=== PATIENT | male | born 1970 | race Caucasian/White ===

== ENCOUNTER → 2020-03-21 16:32 | Outpatient (CLI) | payer OTHER, SELFPAY ==
[2020-03-21 19:42] LABS: Coronavirus 19 IgG Antibody Positive (Negative); Coronavirus 19 IgM Antibody Negative (Negative)
== END ==
PROVIDERS: Visit Provider Internal Medicine Gastroenterology
DX: Z01.818 Encounter for other preprocedural examination (principal); Z12.11 Encounter for screening for malignant neoplasm of colon
CPT/HCPCS: 36415; 86328

== ENCOUNTER 2020-03-23 08:59 | Day surgery (SDC) | payer OTHER, SELFPAY ==
[2020-03-19 09:29] VITALS: BMI 33.9
[2020-03-23] VITALS (7 sets, daily range): BP systolic 79–141; BP diastolic 44–84; PULSE 95–110; RESP 18; TEMP 36–36.9; O2SAT 91–97
[2020-03-23 09:27] LABS: POC Glucose,Bedside 200 (70-110)
--- NOTE | 2020-03-23 10:32 | P.PN_ITS ---
[facility] Anesthesia Checklist - Patient Identification Patient Identification: Arm Band - Structural Data Admitted From: Home Planned Operative Procedure/s: colonoscopy Consent for Planned Operative Procedure(s) Verified: Yes Verified Documents: Surgical Consent, History and Physical - NPO Status Verified Time NPO: 00:00 - Additional verifications Anesthesia Reactions: No - Airway Assessment C-Spine Mobility Assessed: Yes (mp2) TMJ Mobility Assessed: Yes Dentition: Poor Dentition - Neurological Assessment Level of Consciousness: Awake, Alert - Anesthesia Plan Anesthesia Risk discussed: Yes Anesthesia Plan: Verified ASA Class: III Anesthesia Type: MAC [facility] History I have reviewed the patient's past medical history: Yes Medical History: Reports:: Anxiety, Atrial Fibrillation, Diabetes Mellitus Type 2, Hyperlipidemia, Hypertension Denies:: Cancer, Diabetes Mellitus Type 1, Internal Pacemaker, MRSA, Seizures *Have you ever received a pneumonia vaccine?: No *Have you received a flu vaccine this season?: Yes Anesthesia experience/problems:: nac Other Surgeries: Yes: Appendectomy, Other. No: Pacemaker Amputation: No Fractures: Yes (L arm, L foot, nose) - *Social History Last grade of school completed: High school graduate Smoking Status: Never smoker Alcohol Intake: current Alcohol Intake Frequency:: holidays/special occasions only Substance Use Type: denies use, other *Occupational Status:: employed Housing: house Household Members: spouse, family *Travel in the last 8 weeks: None Family Hx:: Diabetes, Cancer
--- NOTE | 2020-03-23 10:54 | P.PCN_ITS ---
[facility] Procedure Note Procedure Note:: Colonoscopy Procedure Report: Colonoscopy with cold snare polypectomy Endoscopist: Gurinder Zuluaga II, MD Referring physician: Fabián Bazan MD Date of Procedure: March 23, 2020 Equipment: Olympus 180 variable stiffness pediatric colonoscope Sedation: MAC sedation Indication: Mr. Segundo is a 49-year-old gentleman who is here for initial diagnostic colonoscopy secondary to rectal pressure and pain with some burning discomfort. He does not feel hemorrhoids and reports no rectal bleeding. The pain can shoot from the anal region with proctalgia. He has had some bowel irregularity with hard stools that later become loose. He does have obstipation with incomplete defecation and excessive wiping. He has noted some lower abdominal discomfort. He does attribute this to some of the new diabetic medications that he was taking. He reports no rectal bleeding or weight loss. He does state that his maternal grandmother had colon cancer in her early 60s. He believes that his maternal uncle also may have had colon cancer or prostate cancer in his early 50s. Procedure: Prior to the procedure, a history and physical exam was performed, and patient's medications and allergies were reviewed. The risks, benefits and alternatives of the sedation and procedure were discussed with the patient. All questions were answered and informed consent was obtained. The patient was brought to the procedure room. Patient identification and proposed procedure were verified by the physician and the nurse. The patient was placed in a left lateral decubitus position and the scope was passed under direct vision. Throughout the procedure, the patient's blood pressure, pulse, and oxygen saturations were monitored continuously. The colonoscopy was accomplished without difficulty. The patient tolerated the procedure well. Findings: On digital rectal examination there was normal rectal tone. There were no external hemorrhoids. The prostate was 2+, minimally firm but symmetric without nodules. The colonoscope was introduced through the anal canal to the rectum and advanced to the cecum. The ileocecal valve and appendiceal orifice were identified. The scope was advanced a short distance into the ileum which appeared grossly normal. The scope was then withdrawn into the colon. There was a single 3 mm polyp in the transverse colon removed via cold snare polypectomy. The remaining cecum, ascending, transverse, descending, sigmoid and rectum were grossly normal. There were no mucosal abnormalities identified. Upon retroflexion within the rectum there were grade 1 internal hemorrhoids.The preparation was excellent throughout with [place] Preparation Score of 9. The cecal time was 12 minutes. Impression: 1. Diminutive transverse colon polyp 2. Grade 1 internal hemorrhoids Plan: I will follow up the polyp pathology and recommend repeat colonoscopy again in 7-10 years based upon the polyp histology. I would encourage fiber supplementation/fiber bowel regimen on a long-term daily maintenance basis.
--- NOTE | 2020-03-23 11:04 | PC.NURSE ---
PT PLACED ON 2L O2 AND SATURATION INCREASED TO 93%.
== END 2020-03-23 11:36 | disposition home or self-care (01) ==
LOC: OUTP 09:05
PROVIDERS: PCP Family Medicine; Visit Provider Internal Medicine Gastroenterology
PROC: 0DJD8ZZ Inspection of Lower Intestinal Tract, Via Natural or Artificial Opening Endoscopic (ICD-10-PCS; CPT 45378; principal; 2020-03-23 10:00)
DX: K62.89 Other specified diseases of anus and rectum (principal); K59.00 Constipation, unspecified; K63.5 Polyp of colon; K64.0 First degree hemorrhoids; E11.9 Type 2 diabetes mellitus without complications; I10 Essential (primary) hypertension; E78.5 Hyperlipidemia, unspecified; I48.91 Unspecified atrial fibrillation; F41.9 Anxiety disorder, unspecified; Z90.49 Acquired absence of other specified parts of digestive tract
CPT/HCPCS: 45385; 82962

== ENCOUNTER 2020-08-15 23:18 | Observation (INO) | payer OTHER, SELFPAY ==
[2020-08-15 23:30] VITALS: BP 165/92; PULSE 76; RESP 18; TEMP 36.4; O2SAT 99; BMI 33.2
--- NOTE | 2020-08-15 23:47 | ECG_ITS ---
APPROVED REPORT Exam: Resting ECG HR:77 bpm ECG Measurements Heart Rate 77 AXES [place] 130 P 40 QRSd 92 QRS 5 QT 384 T 49 QTc 434 Conclusion Normal sinus rhythm Normal ECG Electronically signed by : Jesus Alberto Navarro, 08/16/2020 21:17:20
[2020-08-15 23:49] LABS: Microscopic, Urine URINE MICROSCOPIC (MICROSCOPIC)
[2020-08-15 23:51] LABS: Appearance,Urine CLEAR (Clear); Bilirubin,Urine Negative (Negative); Blood, Urine Negative (Negative); Color,Urine YELLOW (Yellow); Glucose,Urine (UA) 3+ (Negative); Ketones,Urine TRACE (Negative); Leukocyte Esterase,Urine Negative (Negative); Nitrate,Urine Negative (Negative); PH,Urine 6.5 (5.0-8.5); Protein,Urine Negative (Negative)
--- NOTE | 2020-08-15 23:52 | HMH.EDNVD ---
ED Disposition Clinical Impression: Abdominal pain Qualifiers: Abdominal location: upper abdomen, unspecified Qualified Code(s): R10.10 - Upper abdominal pain, unspecified Disposition: Admitted as Observation Condition on Discharge: Good Instructions: DI for Acute Abdominal Pain Referrals: Mauro Bazan MD [Primary Care Provider] - - Critical Care Critical Care Time: No Attestation: On , the high probability of a clinically significant, sudden or life threatening deterioration of the following system(s) required my full and direct attention, intervention and personal management. The time I documented below is in addition to time spent performing reported procedures but includes the following listed in this critical care notation. Medical Decision Making - Medical Records Medical records reviewed: Yes: I reviewed the patient's medical records. - Luigi Inquiry Pt receiving controlled substance: No Vital Signs: 08/15/20 23:30 Temperature 97.5 F L Temperature Source Oral Pulse Rate [Right] 76 Respiratory Rate 18 Blood Pressure [Right Arm] 165/92 H Blood Pressure Mean [Right Arm] 116 Blood Pressure Source [Right Arm] Automatic Cuff Blood Pressure Position [Right Arm] Supine 02 Sat by Pulse Oximetry 99 Oxygen Delivery Method Room Air - Lab Data Lab results reviewed: Yes: I reviewed the patient's lab results. Lab Results 08/15/20 23:30: Urine Color Yellow, Urine Appearance Clear, Urine pH 6.5, Ur Specific [place] 1.010, Urine Protein Negative, Urine Glucose (UA) 3+, Urine Ketones Trace, Urine Blood Negative, Urine Nitrate Negative, Urine Bilirubin Negative, Urine Urobilinogen 1.0, Ur Leukocyte Esterase Negative, Urine WBC Occasional 08/15/20 23:45: WBC 10.3, RBC 5.45, Hgb 14.1, Hct 44.2, MCV 81.0, MCH 25.8 L, MCHC 31.8, RDW 15.6, Plt Count 259, MPV 7.8, Neut % (Auto) 68.3, Lymph % (Auto) 23.9, [place] % (Auto) 6.3, Eos % (Auto) 1.0, Baso % (Auto) 0.4, Neut # (Auto) 7.0, Lymph # (Auto) 2.5, [place] # (Auto) 0.7, Eos # (Auto) 0.1, Baso # (Auto) 0.0 08/15/20 23:45: Sodium 136, Potassium 4.0, Chloride 98, Carbon Dioxide 25, Anion Gap 17.0 H, BUN 16, Creatinine 0.70, Estimated Creat Clear 201, Estimated GFR 120, Est GFR ( Amer) 145, Glucose 344 H, Calcium 10.1, Total Bilirubin 0.7, AST 30, ALT 38, Alkaline Phosphatase 108, Troponin I < 0.01, C-Reactive Protein 34.7 H, Total Protein 8.0, Albumin 4.7, Globulin 3.3 H, Albumin/Globulin Ratio 1.4, Amylase 54, Lipase 394 H 08/15/20 23:45: Lactate 3.0 H 08/15/20 23:45: ESR 21 H 08/15/20 23:45: Procalcitonin 0.082 08/16/20 00:00: Acetone Level None detected 08/16/20 02:17: Troponin I < 0.01 Result diagrams: 08/15/20 23:45 08/15/20 23:45 Orders (Tests/Meds): ED MEDICATIONS Generic Name Dose Route Start Last Admin Trade Name Freq PRN Reason Stop Dose Admin Sodium Chloride 1,000 mls @ 999 mls/hr 08/15/20 23:45 08/15/20 23:53 Sod Chlor 0.9% 1000ml Bag IV 08/16/20 00:45 999 mls/hr .Q1H1M BEN Administration Sodium Chloride 1,000 mls @ 999 mls/hr 08/16/20 02:45 08/16/20 02:37 Sod Chlor 0.9% 1000ml Bag IV 08/16/20 03:45 999 mls/hr .Q1H1M BEN Administration Sodium Chloride 8 ml 08/15/20 23:50 Sodium Chloride 0.9% 10ml Vial IV 09/14/20 23:49 NEEDED PRN dilute pepcid Discontinued Medications Generic Name Dose Route Start Last Admin Trade Name Freq PRN Reason Stop Dose Admin Famotidine 20 mg 08/15/20 23:50 08/15/20 23:53 Famotidine 20mg/2ml Vial IV 08/15/20 23:51 20 mg ONCE ONE Administration Iopamidol 75 ml 08/16/20 01:16 08/16/20 01:17 Iopamidol-370 (76%);100ml Bottle IV 08/16/20 01:17 75 ml ONCE ONE Administration Ketorolac Tromethamine 30 mg 08/15/20 23:50 08/15/20 23:53 Ketorolac 30mg/Ml Vial IV 08/15/20 23:51 30 mg ONCE ONE Administration Metoclopramide HCl 10 mg 08/15/20 23:50 08/15/20 23:53 Metoclopramide Hcl 10mg/2ml Vial IVP 08/15/20 23:51 10 mg ONCE ONE Ad
[2020-08-16] VITALS (8 sets, daily range): BP systolic 115–147; BP diastolic 69–96; PULSE 72–84; RESP 16–18; TEMP 36.4–36.7; O2SAT 93–97; BMI 32.8
[2020-08-16 00:01] LABS: Basophils % 0.4 % (0.1-2.0); Eosinophils # 0.1 K/mm3 (0.0-0.4); Hematocrit 44.2 % (42.0-52.0); Hemoglobin 14.1 g/dL (14.1-18.0); Lymphocytes # 2.5 K/mm3 (0.7-4.5); Lymphocytes % 23.9 % (10-50); Mean Corpuscular HGB Conc 31.8 g/dL (31.8-35.4); Mean Corpuscular Hemoglobin 25.8 pg (27.0-31.2); Mean Platelet Volume 7.8 fl (7.4-10.4); Monocytes # 0.7 K/mm3 (0.1-1.0); Monocytes % 6.3 % (1.7-9.3); Neutrophils % 68.3 % (37.0-80.0); Platelet Count 259 K/mm3 (142-424); Red Blood Count 5.45 M/mm3 (4.60-6.20); Red Cell Distribution Width 15.6 % (11.5-17.5); White Blood Count 10.3 K/mm3 (4.8-10.8)
--- NOTE | 2020-08-16 00:05 | CT_ITS ---
PROCEDURE INFORMATION: Exam: CT Abdomen And Pelvis With Contrast Exam date and time: 08/16/2020 12:05 AM Age: 50 years old Clinical indication: Abdominal pain; Epigastric; Patient HX: Appendix and vascetomy; Additional info: Upper abd pain no vomiting TECHNIQUE: Imaging protocol: Computed tomography of the abdomen and pelvis with contrast. Radiation optimization: All CT scans at this facility use at least one of these dose optimization techniques: automated exposure control; mA and/or kV adjustment per patient size (includes targeted exams where dose is matched to clinical indication); or iterative reconstruction. Contrast material: ISOVUE 370; Contrast volume: 75 ml; Contrast route: INTRAVENOUS (IV); COMPARISON: No relevant prior studies available. FINDINGS: Liver: The liver is diffusely decreased in density, compatible with hepatic steatosis. Gallbladder and bile ducts: Normal. No calcified stones. No ductal dilation. Pancreas: Normal. No ductal dilation. Spleen: The spleen is prominent, measuring at least 15.4 cm. Adrenal glands: Normal. No mass. Kidneys and ureters: Kidneys enhance symmetrically and there is no evidence for obstructive uropathy. Stomach and bowel: Unremarkable. No obstruction. No mucosal thickening. Appendix: The appendix is not definitively visualized, possibly small or absent, however, regional sequela of appendicitis is not identified. Intraperitoneal space: Unremarkable. No free air. No significant fluid collection. Vasculature: Unremarkable. No abdominal aortic aneurysm. Lymph nodes: Increased number of retroperitoneal lymph nodes, possibly reactive in nature, but not enlarged by CT criteria, most prominent a 13 mm portacaval lymph node. Urinary bladder: Unremarkable as visualized. Reproductive: Unremarkable as visualized. Bones/joints: There are age-related degenerative changes of the visualized spine. No acute fracture. Lumbar mild levocurvature noted. Soft tissues: There is a fat containing right inguinal hernia. IMPRESSION: 1. No overt acute inflammatory process or suspicious mass noted. No evidence for bowel obstruction. 2. Hepatic steatosis. 3. Splenomegaly. 4. Increased number of retroperitoneal lymph nodes, possibly reactive in nature, but not enlarged by CT criteria, most prominent a 13 mm portacaval lymph node.
--- NOTE | 2020-08-16 00:06 | XR_ITS ---
PROCEDURE INFORMATION: Exam: XR Chest Exam date and time: 08/16/2020 12:06 AM Age: 50 years old Clinical indication: Other: Epigastric pain radiating into chest; Additional info: Abd pain radiating into chest TECHNIQUE: Imaging protocol: XR of the chest. Views: 2 views. COMPARISON: CR CXR CHEST(2 VIEWS-NOT PORTABLE) 03/21/2017 9:27 PM FINDINGS: Lungs: Bilateral streaky opacities noted, compatible with subsegmental atelectasis. No focal consolidation to suggest pneumonia. Pleural spaces: Unremarkable. No pleural effusion. No pneumothorax. Heart/Mediastinum: Unremarkable. No cardiomegaly. Bones/joints: Unremarkable. IMPRESSION: No acute findings.
[2020-08-16 00:07] LABS: WBC,Urine Occasional #/hpf (0-3)
[2020-08-16 00:11] LABS: Alanine Aminotransferase 38 U/L (12-78); Albumin Level 4.7 g/dl (3.5-5.0); Albumin/Globulin Ratio 1.4 (1.1-1.8); Alkaline Phosphatase 108 U/L (38-126); Amylase 54 U/L (30-110); Aspartate Amino Transferase 30 U/L (17-59); Bilirubin,Total 0.7 mg/dl (0.2-1.3); Blood Urea Nitrogen 16 mg/dl (9-20); Calcium 10.1 mg/dl (8.4-10.2); Carbon Dioxide 25 mmol/L (22.0-30.0); Chloride 98 mmol/L (98-107); Creatinine Clearance Estimated 201 mL/min (50-200); Estimated Glomerular Filt Rate 120 ml/min (>60); GFR (African American) 145 ML/MIN (>60); Globulin 3.3 g/dL (1.3-3.2); Glucose 344 mg/dl (74-100); Lipase 394 U/L (23-300); Sodium 136 mmol/L (136-145)
[2020-08-16 00:14] LABS: C-Reactive Protein 34.7 mg/L (0-4)
[2020-08-16 00:28] LABS: Erythrocyte Sedimentation Rate 21 mm/hr (0-15); Procalcitonin 0.082 ng/mL (0.0-2.0); Troponin I < 0.01 ng/ml (0.00-0.034)
[2020-08-16 00:41] LABS: Acetone, Serum (Rapid) None Detected (None Detect)
[2020-08-16 02:53] LABS: Troponin I < 0.01 ng/ml (0.00-0.034)
--- NOTE | 2020-08-16 03:20 | PC.NURSE ---
Dr Menjivar speaking with Dr Orourke for admission.
[2020-08-16 03:46] LABS: Reflex Lactic Add Lactic Reflex
[2020-08-16 04:08] LABS: Lactic Acid Follow Up (RFLX 1) 1.9 mmol/L (0.7-2.1)
[2020-08-16 06:06] LABS: Troponin I < 0.01 ng/ml (0.00-0.034)
--- NOTE | 2020-08-16 06:39 | PC.NURSE ---
PT ARRIVED TO FLOOR VIA W/C FROM ED W/STAFF AT 0639
--- NOTE | 2020-08-16 07:09 | HMH.PHAVTE ---
[facility] Pharmacy VTE Monitoring - Patient Demographics Admission date: 08/16/20 Report Date: 08/16/20 Time: 07:09 Allergies/Adverse Reactions: Patient Allergies Sulfa (Sulfonamide Antibiotics) [SULFA (SULFONAMIDE ANTIBIOTICS)] Allergy (Intermediate, Verified 03/19/20 09:33) I-HIVES Penicillins [PENICILLINS] Allergy (Unknown, Verified 03/19/20 09:33) Height: 1.83 m Weight: 111.13 kg Patient Problems: Current Active Problems Abdominal pain (Acute) - VTE Risk Labs: VTE Related Lab Results Hgb 14.1 g/dL (14.1-18.0) 08/15/20 23:45 Hct 44.2 % (42.0-52.0) 08/15/20 23:45 Plt Count 259 K/mm3 (142-424) 08/15/20 23:45 BUN 16 mg/dl (9-20) 08/15/20 23:45 Creatinine 0.70 mg/dl (0.66-1.25) 08/15/20 23:45 Estimated Creat Clear 201 mL/min (50-200) 08/15/20 23:45 - Prophylaxis VTE Prophylaxis Ordered?: Yes Types of VTE Prophylaxis: TEDS Knee High Location of Applied Device: Bilateral Lower Extremeties
--- NOTE | 2020-08-16 08:00 | US_ITS ---
PROCEDURE: US GALLBLADDER CLINICAL INDICATION: abd pain COMPARISON: CT CT ABDOMEN PELVIS W CON from 08/16/2020 FINDINGS: Pancreas: Pancreas is not well delineated due to overlying bowel gas. CT or MRI without and with contrast with pancreatic protocol may provide further evaluation if clinically desired. Liver: Fatty liver. No focal liver lesion identified.. There is appropriate direction of blood flow within a non dilated portal vein. Right kidney: Unremarkable appearing. No hydronephrosis. Gallbladder: The gallbladder is contracted and poorly demonstrated. No pericholecystic fluid. No obvious gallstones. Common bile duct is normal at 3 mm. IMPRESSION: Contracted gallbladder poorly demonstrated. No obvious gallstones. Hepatic steatosis. The pancreas is poorly demonstrated but has an unremarkable appearance on CT scan done the same day. Dictated by: Honorio Richards MD 08/16/2020 10:13 Honorio Richards MD in [place] 08/16/2020 10:13
--- NOTE | 2020-08-16 10:05 | HMH.PHAINT ---
MEDICATION RECONCILIATION COMPLETED USING EXTERNAL FILL HISTORY, PHYSICIAN OFFICE LIST, AND PATIENT INTERVIEW
[2020-08-16 12:04] LABS: POC Glucose,Bedside 144 (70-110)
--- NOTE | 2020-08-16 12:30 | HMH.HP ---
*Admission Date: 08/16/20 <Justine Higuera 08/16/20 12:42> *Chief complaint: epigastric abdominal pain <Justine Higuera 08/16/20 12:42> *History of present illness: Mr. Segundo is a 50-year-old male with a history of hypertension, gout, type 2 diabetes, sleep apnea, and atrial fibrillation. He states approximately 2 weeks ago he began getting upper respiratory symptoms with cough and nasal congestion. He then began having abdominal pain in the epigastric area that seemed to shoot up into his chest. Last night the pain in his abdomen worsened and radiated into his back and his chest. He states he felt very bloated and therefore presented to the emergency room for evaluation. His labs showed a normal white blood cell count, a slightly elevated sed rate, a slightly elevated lactic acid level, and an eleated lipase at 394. He had an abdominal and pelvic CT showing nothing acute. There was some splenomegaly and an increased number of retroperitoneal lymph nodes. The patient's chest x-ray showed nothing acute. A gallbladder ultrasound was ordered and he was admitted for further evaluation and treatment. He states he did receive some morphine which helped with his pain. <Justine Higuera 08/16/20 12:42> [facility] History I have reviewed the patient's past medical history: Yes <Justine Higuera 08/16/20 12:42> Medical History: Reports:: Anxiety, Arrhythmia, Atrial Fibrillation, Diabetes Mellitus Type 2, Hyperlipidemia, Hypertension Denies:: Cancer, Diabetes Mellitus Type 1, Internal Pacemaker, MRSA, Seizures <Justine Higuera 08/16/20 12:42> *Have you ever received a pneumonia vaccine?: No <Justine Higuera 08/16/20 12:42> *Have you received a flu vaccine this season?: Yes <Justine Higuera 08/16/20 12:42> Other Surgeries: Yes: Appendectomy, Other. No: Pacemaker <Justine Higuera 08/16/20 12:42> Amputation: No <Justine Higuera 08/16/20 12:42> Fractures: Yes (L arm, L foot, nose) <Justine Higuera 08/16/20 12:42> - *Social History Smoking Status: Never smoker <Justine Higuera 08/16/20 12:42> Alcohol Intake: current <JacobosunniJustine 08/16/20 12:42> Alcohol Intake Frequency:: holidays/special occasions only <JacobosunniJustine 08/16/20 12:42> Substance Use Type: denies use, other <JacobosunniJustine 08/16/20 12:42> *Occupational Status:: employed <KalenJustine 08/16/20 12:42> Housing: house <JacobosunniJustine 08/16/20 12:42> Household Members: spouse <JacobosunniJustine 08/16/20 12:42> *Travel in the last 8 weeks: None <KalenJustine 08/16/20 12:42> - Psychiatric History Pschychiatric History:: Reports:: Anxiety <KalenJustine 08/16/20 12:42> Family Hx:: Coronary Artery Disease, Diabetes, Hyperlipidemia, Hypertension <KalenJustine 08/16/20 12:42> Review of Systems - Constitutional Denies chills, Denies fever(s) <KalenJustine 08/16/20 12:42> - Eyes Denies blurry vision <KalenJustine 08/16/20 12:42> - ENT Denies nasal congestion, Denies sore throat <KalenJustine 08/16/20 12:42> - *Cardiovascular Reports chest pain, Denies shortness of breath, Denies rapid, pounding, or irregular heartbeat <Felipe Higueraa 08/16/20 12:42> - *Respiratory Denies cough, Denies shortness of breath <KalenJustine 08/16/20 12:42> - *Gastrointestinal Reports abdominal pain (epigastric), Reports nausea, Denies loose stools, Denies vomiting <Justine Higuera 08/16/20 12:42> - *Genitourinary Denies difficulty urinating, Denies painful urination <Felipe Higueraa 08/16/20 12:42> - *Musculoskeletal Denies joint pain <Justine Higuera 08/16/20 12:42> - *Neurologic Denies headache(s), Denies seizure-like activity, Denies dizziness, Denies weakness <Justine Higuera - 08/16/20 12:42> Meds Home Medications Medication Instructions Recorded Confirmed Type lisinopril 20 mg tablet 20 mg PO DAILY 05/12/17 08/16/20 History metformin 1,000 mg tablet 1,000 mg PO BID 05/12/17 08/16/20 History Metoprolol Succinate [Metoprolol
--- NOTE | 2020-08-16 16:04 | PC.NURSE ---
PATIENT A&O X4, LUNGS ARE CLEAR, PULSES ARE EQUAL. THIS RN PROVIDED PATIENT WITH POST OP SHOES, EDUCATED PATIENT THE IMPORTANCE OF SAFETY WHILE AMBULATING WITH SHOES ON. PATIENT VERBALIZED AN UNDERSTANDING. PATIENT HAS STATED THAT HE FEELS THAT HIS METOPROLOL MAKES HIM FEEL JAMIR FOGGY AND REQUESTED THAT SOMETHING ELSE BE GIVEN. THIS RN INFORMED PATIENT THAT THE INFORMATION WILL BE PASSED ALONG DURING REPORT. PATIENT VERBALIZED AN UNDERSTANDING. NO NEW CONCERNS AT THIS TIME.
[2020-08-16 16:41] LABS: POC Glucose,Bedside 274 (70-110)
--- NOTE | 2020-08-16 17:36 | P.PN_ITS ---
Internal Medicine - PN: Palak *Date: 08/16/20 *Time: 17:36 Interval history: F/u NOTE: GB US showed no stones or pericholic fluid. He has tolerated his diet this afternoon with no recurring pain. Bowels have moved. Exam Vital signs and Labs for Last 24 Hours: Temp Pulse Resp BP Pulse Ox 98.0 F 82 18 147/96 H 95 08/16/20 15:25 08/16/20 15:25 08/16/20 15:25 08/16/20 15:25 08/16/20 15:25 Laboratory Results - last 24 hr 08/15/20 23:30: Urine Color Yellow, Urine Appearance Clear, Urine pH 6.5, Ur Specific [place] 1.010, Urine Protein Negative, Urine Glucose (UA) 3+, Urine Ketones Trace, Urine Blood Negative, Urine Nitrate Negative, Urine Bilirubin Negative, Urine Urobilinogen 1.0, Ur Leukocyte Esterase Negative, Urine WBC Occasional 08/15/20 23:45: WBC 10.3, RBC 5.45, Hgb 14.1, Hct 44.2, MCV 81.0, MCH 25.8 L, MCHC 31.8, RDW 15.6, Plt Count 259, MPV 7.8, Neut % (Auto) 68.3, Lymph % (Auto) 23.9, [place] % (Auto) 6.3, Eos % (Auto) 1.0, Baso % (Auto) 0.4, Neut # (Auto) 7.0, Lymph # (Auto) 2.5, [place] # (Auto) 0.7, Eos # (Auto) 0.1, Baso # (Auto) 0.0 08/15/20 23:45: Sodium 136, Potassium 4.0, Chloride 98, Carbon Dioxide 25, Anion Gap 17.0 H, BUN 16, Creatinine 0.70, Estimated Creat Clear 201, Estimated GFR 120, Est GFR ( Amer) 145, Glucose 344 H, Calcium 10.1, Total Bilirubin 0.7, AST 30, ALT 38, Alkaline Phosphatase 108, Troponin I < 0.01, C-Reactive Protein 34.7 H, Total Protein 8.0, Albumin 4.7, Globulin 3.3 H, Albumin/Globulin Ratio 1.4, Amylase 54, Lipase 394 H 08/15/20 23:45: Lactate 3.0 H 08/15/20 23:45: ESR 21 H 08/15/20 23:45: Procalcitonin 0.082 08/16/20 00:00: Acetone Level None detected 08/16/20 02:17: Troponin I < 0.01 08/16/20 03:35: Lactate 1.9 08/16/20 05:30: Troponin I < 0.01 08/16/20 11:52: POC Glucose 144 H 08/16/20 16:34: POC Glucose 274 H I & O for Last 24 hours: Intake & Output 08/14/20 08/15/20 08/16/20 08/17/20 11:59 11:59 11:59 11:59 Intake Total 1999 0 / 0 Balance 1999 0 / 0 Weight 249 lb Microbiology Reports for the Last 24 Hours: Microbiology 08/16/20 03:20 Nasopharyngeal Coronavirus COVID-19 PCR - Final - *Routine Abdominal Exam Present: soft. Absent: tenderness, distended Assessment and Plan (1) Epigastric abdominal pain Status: Acute Category: Medical Code(s): R10.13 - Epigastric pain (2) Elevated lipase Status: Acute Category: Medical Code(s): R74.8 - Abnormal levels of other serum enzymes (3) Hypertension Status: Chronic Category: Medical Code(s): I10 - Essential (primary) hypertension (4) Type 2 diabetes mellitus Status: Chronic Category: Medical Code(s): E11.9 - Type 2 diabetes mellitus without complications (5) History of atrial fibrillation Status: Chronic Category: Medical Code(s): Z86.79 - Personal history of other diseases of the circulatory system - Assessment and plan all Dx Assessment and Plan for all problems:: He is stable for discharge. Likely had mild case of pancreatitis and/or gastritis. Will discharge home on PPI. He also requests change from [employer] stating it makes him feel dehydrated and causes muscle cramps. He will f/u in a week.
--- NOTE | 2020-08-22 17:07 | HMH.DCSUM ---
General - General Admission date:: 08/16/20 <Mauro Bazan - 09/01/20 08:30> 08/16/20 <Justine Higuera - 08/22/20 17:10> Discharge date: 08/16/20 <Justine Higuera - 08/22/20 17:10> HPI HPI: Mr. Segundo is a 50-year-old male with a history of hypertension, gout, type 2 diabetes, sleep apnea, and atrial fibrillation. He states approximately 2 weeks ago he began getting upper respiratory symptoms with cough and nasal congestion. He then began having abdominal pain in the epigastric area that seemed to shoot up into his chest. Last night the pain in his abdomen worsened and radiated into his back and his chest. He states he felt very bloated and therefore presented to the emergency room for evaluation. His labs showed a normal white blood cell count, a slightly elevated sed rate, a slightly elevated lactic acid level, and an eleated lipase at 394. He had an abdominal and pelvic CT showing nothing acute. There was some splenomegaly and an increased number of retroperitoneal lymph nodes. The patient's chest x-ray showed nothing acute. A gallbladder ultrasound was ordered and he was admitted for further evaluation and treatment. He states he did receive some morphine which helped with his pain. <Justine Higuera - 08/22/20 17:10> Hospital Course Hospital Course: The patient was admitted and started on pain medication and antiemetics. A gallbladder ultrasound was ordered and was relatively unremarkable. The patient tolerated a diet with no recurring pain and his bowels moved. It was felt he had a mild case of pancreatitis/gastritis. He was stable to be discharged home on a PPI and also requested a change from Jard[facility] stating it made him feel dehydrated and caused muscle cramps. He will follow-up with Dr. Bazan in 1 week. <Justine Higuera - 08/22/20 17:10> Objective Vital signs: Temp Pulse Resp BP Pulse Ox 98.0 F 82 18 147/96 H 95 08/16/20 15:25 08/16/20 15:25 08/16/20 15:25 08/16/20 15:25 08/16/20 15:25 <Mauro Bazan - 09/01/20 08:30> Temp Pulse Resp BP Pulse Ox 98.0 F 82 18 147/96 H 95 08/16/20 15:25 08/16/20 15:25 08/16/20 15:25 08/16/20 15:25 08/16/20 15:25 <Justine Higuera - 08/22/20 17:10> Narrative: - Constitutional no acute distress - *Routine HEENT Exam Head: Present: normocephalic Eye: Present: EOMI, PERRL ENT: Present: mucous membranes moist - *Routine Neck Exam Present: supple. Absent: lymphadenopathy - *Routine Respiratory Exam Present: CTA bilaterally - *Routine Cardiovascular Exam Present: RRR - *Routine Abdominal Exam Present: soft, normoactive bowel sounds, tenderness (epigatric area) - *Routine Extremities Exam Absent: cyanosis, clubbing, edema - *Routine Skin Exam Present: warm. Absent: rash - *Routine Neurological Exam Present: alert, oriented X3 <Justine Higuera 08/22/20 17:10> DS: Diagnosis - Discharge Diagnosis (1) Epigastric abdominal pain Status: Acute (2) Elevated lipase Status: Acute (3) Hypertension Status: Chronic (4) Type 2 diabetes mellitus Status: Chronic (5) History of atrial fibrillation Status: Chronic <Justine Higuera 08/22/20 17:07> (1) Epigastric abdominal pain Status: Acute (2) Elevated lipase Status: Acute (3) Hypertension Status: Chronic (4) Type 2 diabetes mellitus Status: Chronic (5) History of atrial fibrillation Status: Chronic <Mauro Bazan - 09/01/20 08:30> Discharge Plan - Patient Discharge Instructions ACTIVITY: Continue current activity <Justine Higuera 08/22/20 17:10> DIET: continue same diet <Justine Higuera 08/22/20 17:10> Patient Instructions: DI for Abdominal Pain-Adult <Mauro Bazan - 09/01/20 08:30> Forms: <Mauro Bazan - 09/01/20 08:30> - Follow up Plan Follow up with: Mauro Bazan MD [Primary Care Provider]
== END 2020-08-16 17:25 | disposition home or self-care (01) ==
LOC: ER 08-16 03:22 → 2ND 08-16 06:39
PROVIDERS: Admitting Provider Family Medicine; Emergency Provider Emergency Medicine; PCP Family Medicine; Visit Provider Family Medicine
DX: R10.13 Epigastric pain (principal); I10 Essential (primary) hypertension; E11.9 Type 2 diabetes mellitus without complications; Z79.84 Long term (current) use of oral hypoglycemic drugs; Z79.899 Other long term (current) drug therapy; Z88.0 Allergy status to penicillin; Z88.2 Allergy status to sulfonamides
CPT/HCPCS: 71046; 74177; 76705; 80053; 81001; 82009; 82150; 82962; 83605; 83690; 84145; 84484; 85025; 85651; 86140; 87040; 93005; 96365; 96366; 96375; 96376; 99284; G0378; J2405; Q9967; U0003

== ENCOUNTER 2021-03-21 18:43 | Inpatient (IN) | payer OTHER, SELFPAY ==
[2021-03-21 18:44] VITALS: BP 173/89; PULSE 107; RESP 16; TEMP 37.3; O2SAT 98; BMI 33.9
--- NOTE | 2021-03-21 19:05 | ECG_ITS ---
APPROVED REPORT Exam: Resting ECG HR:107 bpm ECG Measurements Heart Rate 107 AXES IA 150 P 43 QRSd 76 QRS 0 QT 312 T 19 QTc 416 Conclusion Sinus tachycardia Low voltage QRS Isolated q in III O/w normal ECG Electronically signed by : Jesus Alberto Navarro MD 03/22/2021 20:38:51
[2021-03-21 19:22] LABS: Microscopic, Urine URINE MICROSCOPIC (MICROSCOPIC)
--- NOTE | 2021-03-21 19:22 | HMH.EDABDPAI ---
ED Disposition Condition on Discharge: Fair - Critical Care Critical Care Time: No <RikijeanetteJeremy - Last Filed: 03/21/21 19:46> <Shola Menjivar - Last Filed: 03/21/21 21:06> Clinical Impression: Coronary artery calcification seen on CAT scan Abdominal pain Qualifiers: Abdominal location: right upper quadrant Qualified Code(s): R10.11 - Right upper quadrant pain Pancreatitis Qualifiers: Chronicity: acute Pancreatitis type: unspecified pancreatitis type Acute pancreatitis complication: no infection or necrosis Qualified Code(s): K85.90 - Acute pancreatitis without necrosis or infection, unspecified Type 2 diabetes mellitus Qualifiers: Diabetes mellitus medical terminologist insulin use: without medical terminologist use Diabetes mellitus complication status: with other specified complication Qualified Code(s): E11.69 - Type 2 diabetes mellitus with other specified complication Hypertension Qualifiers: Hypertension type: primary hypertension Qualified Code(s): I10 - Essential (primary) hypertension Disposition: Admitted As Inpatient Instructions: DI for Acute Abdominal Pain Referrals: Mauro Bazan MD [Primary Care Provider] - Attestation: On 03/21/21, the high probability of a clinically significant, sudden or life threatening deterioration of the following system(s) required my full and direct attention, intervention and personal management. The time I documented below is in addition to time spent performing reported procedures but includes the following listed in this critical care notation. Medical Decision Making - Medical Records Medical records reviewed: Yes: I reviewed the patient's medical records. - Luigi Inquiry Pt receiving controlled substance: No - Lab Data Result diagrams: 03/21/21 19:10 - ECG Data Tracing #1 I reviewed this ECG and interpreted as documented below: ECG initial impression date: 03/21/21 ECG initial impression time: 19:05 <RikijeanetteJeremy - Last Filed: 03/21/21 19:46> - Lab Data Lab results reviewed: Yes: I reviewed the patient's lab results. Result diagrams: 03/21/21 19:10 03/21/21 19:10 - CT Data CT Scan: Abdomen, Pelvis Time Received: 21:[address] Reviewed: Yes: I have viewed the radiologist's interpretation Preliminary Findings: Abnormal (see report) - Physician Consults Physician Consulted: chandler Reason -: Admission <Shola Menjivar - Last Filed: 03/21/21 21:06> Vital Signs: 03/21/21 18:44 Temperature 99.2 F Temperature Source Oral Pulse Rate [Radial] 107 H Respiratory Rate 16 Blood Pressure [Right Arm] 173/89 H Blood Pressure Mean [Right Arm] 117 Blood Pressure Position [Right Arm] Sitting 02 Sat by Pulse Oximetry 98 Oxygen Delivery Method Room Air - Lab Data Lab Results 03/21/21 19:10: WBC 8.4, RBC 4.79, Hgb 13.3 L, Hct 39.0 L, MCV 81.3, MCH 27.8, MCHC 34.1, RDW 14.3, Plt Count 246, MPV 8.1, Neut % (Auto) 68.1, Lymph % (Auto) 23.0, [place] % (Auto) 6.5, Eos % (Auto) 1.8, Baso % (Auto) 0.7, Neut # (Auto) 5.7, Lymph # (Auto) 1.9, [place] # (Auto) 0.5, Eos # (Auto) 0.2, Baso # (Auto) 0.1 03/21/21 19:10: Sodium 134 L, Potassium 4.1, Chloride 97 L, Carbon Dioxide 28, Anion Gap 13.1, BUN 12, Creatinine 0.70, Estimated Creat Clear 205, Estimated GFR 120, Est GFR ( Amer) 145, Glucose 288 H, Calcium 9.1, Total Bilirubin 0.3, AST 38, ALT 50, Alkaline Phosphatase 101, Troponin I < 0.01, Total Protein 7.0, Albumin 4.1, Globulin 2.9, Albumin/Globulin Ratio 1.4, Lipase 5886 H 03/21/21 19:17: Urine Color Yellow, Urine Appearance Clear, Urine pH 6.5, Ur Specific [place] 1.020, Urine Protein Negative, Urine Glucose (UA) 3+, Urine Ketones Negative, Urine Blood Negative, Urine Nitrate Negative, Urine Bilirubin Negative, Urine Urobilinogen 0.2, Ur Leukocyte Esterase Negative, Urine RBC Occasional, Urine WBC Occasional, Ur Squamous Epith Cells None, Urine Bacteria None Orders (Tests/Meds): ED MEDICATIONS Generic Name Dose Route Start Last Admin
[2021-03-21 19:25] LABS: Chloride 97 mmol/L (98-107); Potassium 4.1 mmoL/L (3.5-5.1); Sodium 134 mmol/L (136-145)
[2021-03-21 19:25] LABS: Appearance,Urine CLEAR (Clear); Bilirubin,Urine Negative (Negative); Blood, Urine Negative (Negative); Color,Urine YELLOW (Yellow); Glucose,Urine (UA) 3+ (Negative); Ketones,Urine Negative (Negative); Leukocyte Esterase,Urine Negative (Negative); Nitrate,Urine Negative (Negative); PH,Urine 6.5 (5.0-8.5); Protein,Urine Negative (Negative); Urobilinogen,Urine 0.2 EU/dl (0.2)
[2021-03-21 19:28] LABS: Alanine Aminotransferase 50 U/L (12-78); Alkaline Phosphatase 101 U/L (38-126); Anion Gap 13.1 mEq/L (5-15); Aspartate Amino Transferase 38 U/L (17-59); Bilirubin,Total 0.3 mg/dl (0.2-1.3); Blood Urea Nitrogen 12 mg/dl (9-20); Calcium 9.1 mg/dl (8.4-10.2); Carbon Dioxide 28 mmol/L (22.0-30.0); Creatinine Clearance Estimated 205 mL/min (50-200); Estimated Glomerular Filt Rate 120 ml/min (>60); GFR (African American) 145 ML/MIN (>60); Glucose 288 mg/dl (74-100)
[2021-03-21 19:29] LABS: Albumin Level 4.1 g/dl (3.5-5.0); Albumin/Globulin Ratio 1.4 (1.1-1.8); Globulin 2.9 g/dL (1.3-3.2)
[2021-03-21 19:44] LABS: Troponin I < 0.01 ng/ml (0.00-0.034)
[2021-03-21 19:46] LABS: Basophils # 0.1 K/mm3 (0-0.2); Basophils % 0.7 % (0.1-2.0); Eosinophils # 0.2 K/mm3 (0.0-0.4); Eosinophils % 1.8 % (0.1-12.0); Hemoglobin 13.3 g/dL (14.1-18.0); Lymphocytes # 1.9 K/mm3 (0.7-4.5); Mean Corpuscular HGB Conc 34.1 g/dL (31.8-35.4); Mean Corpuscular Hemoglobin 27.8 pg (27.0-31.2); Mean Corpuscular Volume 81.3 fl (80-94); Mean Platelet Volume 8.1 fl (7.4-10.4); Monocytes # 0.5 K/mm3 (0.1-1.0); Monocytes % 6.5 % (1.7-9.3); Neutrophils # 5.7 K/mm3 (1.8-7.8); Neutrophils % 68.1 % (37.0-80.0); Platelet Count 246 K/mm3 (142-424); Red Blood Count 4.79 M/mm3 (4.60-6.20); Red Cell Distribution Width 14.3 % (11.5-17.5); White Blood Count 8.4 K/mm3 (4.8-10.8)
--- NOTE | 2021-03-21 19:46 | CT_ITS ---
PROCEDURE INFORMATION: Exam: CT Abdomen And Pelvis With Contrast Exam date and time: 03/21/2021 7:46 PM Age: 50 years old Clinical indication: Abdominal pain; Localized; Right upper quadrant (ruq); Additional info: Ruq pain TECHNIQUE: Imaging protocol: Computed tomography of the abdomen and pelvis with contrast. Total images: 352 Radiation optimization: All CT scans at this facility use at least one of these dose optimization techniques: automated exposure control; mA and/or kV adjustment per patient size (includes targeted exams where dose is matched to clinical indication); or iterative reconstruction. Contrast material: ISOVUE; Contrast volume: 75 ml; Contrast route: IV; COMPARISON: CT ABDOMEN PELVIS W CON 08/16/2020 12:31 AM FINDINGS: Lungs: Visualized lung bases are clear. Heart: Heart size normal. Moderate coronary artery calcification in the RCA distribution. Mediastinal space: The visualized distal esophagus is largely contracted without gross abnormality. Liver: Moderate fatty infiltration of the liver. Mild geographic sparing in the lateral liver dome. Normal contour. No mass lesions. No intrahepatic biliary ductal dilatation. Gallbladder and bile ducts: The gallbladder is partially contracted but otherwise unremarkable. Nondilated common bile duct. Pancreas: Peripancreatic stranding around the pancreatic head suspicious for mild pancreatitis. No fluid collections. Normal parenchymal enhancement without evidence of necrosis. No ductal dilatation. Mild generalized pancreatic atrophy. Mild soft tissue stranding tracking into the rightward anterior pararenal space. Spleen: Splenomegaly measuring 15 cm maximum dimension. No focal splenic lesions. Adrenal glands: Normal. No adrenal mass. Kidneys and ureters: Mild bilateral symmetrical perinephric stranding, nonspecific. This is unchanged and may relate to chronic perirenal scarring. No hydronephrosis or hydroureter. No urinary tract stones are identified. Stomach and bowel: The stomach is unremarkable. The small bowel is nondilated with no gross abnormality. No acute colonic abnormalities. Appendix: Prior appendectomy. Intraperitoneal space: No free fluid or air. Vasculature: No acute process. No abdominal aortic aneurysm. Lymph nodes: No adenopathy. Urinary bladder: Unremarkable as visualized. Reproductive: Mildly enlarged prostate. Bones/joints: No acute osseous abnormalities. Soft tissues: Very small fatty umbilical hernia and small fatty right inguinal hernia. No evidence of associated bowel herniation or strangulation. IMPRESSION: 1. There is evidence of mild interstitial pancreatitis involving primarily the pancreatic head and neck. No signs of pancreatic necrosis. No ductal dilatation or fluid collections. 2. Fatty liver. 3. Splenomegaly. 4. Additional nonemergent findings detailed above.
[2021-03-21 19:50] VITALS: BP 145/85; PULSE 99; RESP 20; TEMP 36.9; O2SAT 96
[2021-03-21 19:59] LABS: RBC,Urine Occasional #/hpf (0-3); WBC,Urine Occasional #/hpf (0-3)
[2021-03-21 20:13] LABS: Lipase 5886 U/L (23-300)
--- NOTE | 2021-03-21 20:13 | PC.NURSE ---
LIPASE 5886 RECEIVED FROM MARY IN LAB. AWARE
--- NOTE | 2021-03-21 20:57 | PC.NURSE ---
paged dr arteaga
--- NOTE | 2021-03-21 21:05 | PC.NURSE ---
s/w correction officer supervisor for bed assignment
[2021-03-21 21:15] VITALS: BP 146/89; PULSE 99; RESP 18; TEMP 37.1; O2SAT 94; BMI 34.4
--- NOTE | 2021-03-21 21:51 | PC.NURSE ---
Patient arrived to the floor via wheelchair at 21:15.
[2021-03-21 21:58] VITALS: PULSE 90
[2021-03-21 22:05] LABS: Coronavirus 19, PCR Not Detected (NotDetected); Influenza A, PCR Not Detected (NotDetected); Influenza B, PCR Not Detected (NotDetected)
[2021-03-21 23:30] LABS: Troponin I < 0.01 ng/ml (0.00-0.034)
[2021-03-22] VITALS (7 sets, daily range): BP systolic 122–151; BP diastolic 80–97; PULSE 57–100; RESP 14–20; TEMP 36.2–37.9; O2SAT 92–99; BMI 34.0
[2021-03-22 01:53] LABS: Troponin I < 0.01 ng/ml (0.00-0.034)
[2021-03-22 05:19] LABS: POC Glucose,Bedside 213 (70-110)
--- NOTE | 2021-03-22 05:58 | PC.NURSE ---
Pt has slept at intervals. C/O pain and tenderness to abdomen. Medicated per jun. VSS. No other concerns. Will continue to monitor.
[2021-03-22 06:26] LABS: Basophils # 0.1 K/mm3 (0-0.2); Basophils % 0.5 % (0.1-2.0); Eosinophils # 0.1 K/mm3 (0.0-0.4); Eosinophils % 1.2 % (0.1-12.0); Hematocrit 39.7 % (42.0-52.0); Hemoglobin 13.2 g/dL (14.1-18.0); Lymphocytes # 2.2 K/mm3 (0.7-4.5); Lymphocytes % 18.9 % (10-50); Mean Corpuscular HGB Conc 33.2 g/dL (31.8-35.4); Mean Corpuscular Hemoglobin 27.6 pg (27.0-31.2); Mean Corpuscular Volume 83.2 fl (80-94); Mean Platelet Volume 8.5 fl (7.4-10.4); Monocytes # 0.7 K/mm3 (0.1-1.0); Monocytes % 6.3 % (1.7-9.3); Neutrophils # 8.3 K/mm3 (1.8-7.8); Neutrophils % 73.1 % (37.0-80.0); Platelet Count 246 K/mm3 (142-424); Red Blood Count 4.77 M/mm3 (4.60-6.20); Red Cell Distribution Width 14.3 % (11.5-17.5); White Blood Count 11.3 K/mm3 (4.8-10.8)
[2021-03-22 07:33] LABS: Chloride 98 mmol/L (98-107); Sodium 133 mmol/L (136-145)
[2021-03-22 07:34] LABS: Potassium 4.2 mmoL/L (3.5-5.1)
[2021-03-22 07:36] LABS: Amylase 433 U/L (30-110); Anion Gap 12.2 mEq/L (5-15); Blood Urea Nitrogen 7 mg/dl (9-20); Carbon Dioxide 27 mmol/L (22.0-30.0); Creatinine Clearance Estimated 240 mL/min (50-200); Estimated Glomerular Filt Rate 143 ml/min (>60); GFR (African American) 173 ML/MIN (>60); Glucose 219 mg/dl (74-100)
[2021-03-22 07:37] LABS: Calcium 8.7 mg/dl (8.4-10.2); Chol/HDL Ratio 3.9 (1-3.5); Cholesterol 150 mg/dl (140-200); HDL Cholesterol 38 mg/dl (40-60); Magnesium 1.6 mg/dl (1.6-2.3); Triglycerides 96 mg/dl (30-150); VLDL Cholesterol 19 mg/dL (0-40)
[2021-03-22 07:48] LABS: Direct LDL Cholesterol 88.58 mg/dL (100-129)
--- NOTE | 2021-03-22 08:06 | HMH.PHAVTE ---
[facility] Pharmacy VTE Monitoring - Patient Demographics Admission date: 03/21/21 Report Date: 03/22/21 Time: 08:06 Allergies/Adverse Reactions: Patient Allergies Sulfa (Sulfonamide Antibiotics) [SULFA (SULFONAMIDE ANTIBIOTICS)] Allergy (Intermediate, Verified 03/19/20 09:33) I-HIVES Penicillins [PENICILLINS] Allergy (Unknown, Verified 03/19/20 09:33) Height: 1.83 m Weight: 113.806 kg Patient Problems: Current Active Problems Abdominal pain (Acute) Hypertension (Chronic) Type 2 diabetes mellitus (Chronic) Pancreatitis (Acute) Coronary artery calcification seen on CAT scan (Acute) - VTE Risk Labs: VTE Related Lab Results Hgb 13.2 g/dL (14.1-18.0) L 03/22/21 05:21 Hct 39.7 % (42.0-52.0) L 03/22/21 05:21 Plt Count 246 K/mm3 (142-424) 03/22/21 05:21 BUN 12 mg/dl (9-20) 03/21/21 19:10 Creatinine 0.70 mg/dl (0.66-1.25) 03/21/21 19:10 Estimated Creat Clear 205 mL/min (50-200) 03/21/21 19:10 VTE Score: 4 VTE Risk Level: Low Risk - Prophylaxis VTE Prophylaxis Ordered?: Yes Types of VTE Prophylaxis: TEDS Knee High Location of Applied Device: Bilateral Lower Extremeties
[2021-03-22 08:07] LABS: Lipase 4651 U/L (23-300)
--- NOTE | 2021-03-22 09:30 | HMH.PHAINT ---
Home medications verified with [facility] pharmacy and physican office (Mauro Bazan MD) from 08/16/20
--- NOTE | 2021-03-22 11:34 | HMH.HP ---
*Admission Date: 03/22/21 <Justine Higuera - 03/22/21 12:04> *Chief complaint: abdominal pain, nausea <Justine Higuera 03/22/21 12:04> *History of present illness: Mr. Segundo is a 50-year-old male with a history of hypertension, gout, type 2 diabetes, A. fib, and hyperlipidemia. He states a few months ago he had some abdominal pain, but tests were negative for pancreatitis. At the beginning of this week he started having some diarrhea. He then started having worsening epigastric and right upper quadrant abdominal pain that radiated into his back. He finally came to the emergency room for evaluation and was found to have an elevated amylase and lipase and a pancreatitis on CT scan. He was admitted and kept n.p.o. He denies any history of alcohol use and his triglycerides have been normal. He has never had any problems with his gallbladder. This a.m. he continues with some abdominal discomfort, but it has improved slightly. He still has some radiation to his back. He has some mild nausea but no vomiting. His diarrhea has resolved. His abdominal pelvic CT showed a pancreatitis, fatty liver, and splenomegaly. <Justine Higuera - 03/22/21 12:04> [facility] History I have reviewed the patient's past medical history: Yes <Justine Higuera 03/22/21 12:04> Medical History: Reports:: Anxiety, Arrhythmia, Atrial Fibrillation, Diabetes Mellitus Type 2, Hyperlipidemia, Hypertension Denies:: Cancer, Diabetes Mellitus Type 1, Internal Pacemaker, MRSA, Seizures <Justine Higuera 03/22/21 12:04> *Have you ever received a pneumonia vaccine?: No <Justine Higuera 03/22/21 12:04> *Have you received a flu vaccine this season?: Yes <Justine Higuera 03/22/21 12:04> Other Surgeries: Yes: Appendectomy, Other. No: Pacemaker <Justine Higuera 03/22/21 12:04> Amputation: No <Justine Higuera 03/22/21 12:04> Fractures: Yes (L arm, L foot, nose) <Justine Higuera 03/22/21 12:04> - *Social History Smoking Status: Never smoker <Justine Higuera 03/22/21 12:04> Alcohol Intake: never <Justine Higuera 03/22/21 12:04> Alcohol Intake Frequency:: holidays/special occasions only <Justine Higuera 03/22/21 12:04> Substance Use Type: denies use, other <Justine Higuera 03/22/21 12:04> *Occupational Status:: employed <Justine Higuera 03/22/21 12:04> Housing: house <Justine Higuera 03/22/21 12:04> Household Members: spouse <Justine Higuera 03/22/21 12:04> *Travel in the last 8 weeks: Inside the [place] <Justine Higuera 03/22/21 12:04> - Psychiatric History Pschychiatric History:: Reports:: Anxiety <Justine Higuera 03/22/21 12:04> Family Hx:: Anemia, Cancer, Coronary Artery Disease, Diabetes, Heart Attack, Hyperlipidemia, Hypertension, Alcoholism, Mental illness <Justine Higuera 03/22/21 12:04> Review of Systems - Constitutional Denies chills, Denies fever(s) <Justine Higuera 03/22/21 12:04> - Eyes Denies blurry vision, Denies double vision <Justine Higuera 03/22/21 12:04> - ENT Denies nasal congestion, Denies sore throat <Justine Higuera 03/22/21 12:04> - *Cardiovascular Denies chest pain, Denies shortness of breath <Justine Higuera 03/22/21 12:04> - *Respiratory Denies chest congestion, Denies cough <Justine Higuera 03/22/21 12:04> - *Gastrointestinal Reports abdominal pain, Reports loose stools, Reports nausea, Denies vomiting <Justine Higuera 03/22/21 12:04> - *Genitourinary Denies difficulty urinating, Denies painful urination <Justine Higuera 03/22/21 12:04> - *Musculoskeletal Reports back pain, Denies joint pain <Justine Higuera 03/22/21 12:04> - *Neurologic Denies headache(s), Denies dizziness, Denies weakness <Justine Higuera - 03/22/21 12:04> Meds Home Medications Medication Instructions Recorded Confirmed Type Metoprolol Succinate [Metoprolol 25 mg PO DAILY 03/19/20 03/22/21 History Succinate 25mg Tablet*] Aspirin [Aspirin 81mg EC Tab] 81 mg PO DAILY 08/16/20 03/22/21 History Cholecalciferol (Vitamin
[2021-03-22 12:03] LABS: POC Glucose,Bedside 188 (70-110)
[2021-03-22 16:54] LABS: POC Glucose,Bedside 222 (70-110)
[2021-03-22 20:14] LABS: POC Glucose,Bedside 165 (70-110)
[2021-03-23] VITALS (8 sets, daily range): BP systolic 115–153; BP diastolic 73–97; PULSE 70–89; RESP 18; TEMP 36.7–37.2; O2SAT 94–97; BMI 33.1
[2021-03-23 06:55] LABS: POC Glucose,Bedside 201 (70-110)
[2021-03-23 07:36] LABS: Basophils % 0.3 % (0.1-2.0); Eosinophils # 0.2 K/mm3 (0.0-0.4); Eosinophils % 1.8 % (0.1-12.0); Hematocrit 41.1 % (42.0-52.0); Hemoglobin 13.3 g/dL (14.1-18.0); Lymphocytes # 1.8 K/mm3 (0.7-4.5); Lymphocytes % 20.1 % (10-50); Mean Corpuscular HGB Conc 32.5 g/dL (31.8-35.4); Mean Platelet Volume 8.2 fl (7.4-10.4); Monocytes # 0.5 K/mm3 (0.1-1.0); Monocytes % 5.5 % (1.7-9.3); Neutrophils # 6.4 K/mm3 (1.8-7.8); Neutrophils % 72.2 % (37.0-80.0); Platelet Count 283 K/mm3 (142-424); Red Blood Count 4.95 M/mm3 (4.60-6.20); Red Cell Distribution Width 14.3 % (11.5-17.5); White Blood Count 8.9 K/mm3 (4.8-10.8)
[2021-03-23 07:41] LABS: Chloride 99 mmol/L (98-107)
[2021-03-23 07:42] LABS: Potassium 4.3 mmoL/L (3.5-5.1); Sodium 136 mmol/L (136-145)
[2021-03-23 07:44] LABS: Alanine Aminotransferase 33 U/L (12-78); Alkaline Phosphatase 98 U/L (38-126); Amylase 143 U/L (30-110); Anion Gap 12.3 mEq/L (5-15); Aspartate Amino Transferase 28 U/L (17-59); Bilirubin,Total 0.8 mg/dl (0.2-1.3); Blood Urea Nitrogen 9 mg/dl (9-20); Carbon Dioxide 29 mmol/L (22.0-30.0); Creatinine Clearance Estimated 200 mL/min (50-200); Estimated Glomerular Filt Rate 120 ml/min (>60); GFR (African American) 145 ML/MIN (>60); Glucose 220 mg/dl (74-100)
[2021-03-23 07:45] LABS: Albumin/Globulin Ratio 1.3 (1.1-1.8); Globulin 3.1 g/dL (1.3-3.2); Total Protein,Serum 7.1 g/dl (6.3-8.2)
[2021-03-23 07:56] LABS: Lipase 936 U/L (23-300)
--- NOTE | 2021-03-23 09:33 | P.PN_ITS ---
Internal Medicine - PN: Subj *Date: 03/23/21 *Time: 09:33 Interval history: He rested well last night. Abdominal pain has improved. Denies nausea. He feels hungry. Exam Vital signs and Labs for Last 24 Hours: Temp Pulse Resp BP Pulse Ox 98.1 F 87 18 127/93 H 95 03/23/21 07:56 03/23/21 07:56 03/23/21 07:56 03/23/21 07:56 03/23/21 07:56 Laboratory Results - last 24 hr 03/22/21 11:53: POC Glucose 188 H 03/22/21 16:39: POC Glucose 222 H 03/22/21 20:00: POC Glucose 165 H 03/23/21 05:59: POC Glucose 201 H 03/23/21 06:53: WBC 8.9, RBC 4.95, Hgb 13.3 L, Hct 41.1 L, MCV 83.0, MCH 27.0, MCHC 32.5, RDW 14.3, Plt Count 283, MPV 8.2, Neut % (Auto) 72.2, Lymph % (Auto) 20.1, [place] % (Auto) 5.5, Eos % (Auto) 1.8, Baso % (Auto) 0.3, Neut # (Auto) 6.4, Lymph # (Auto) 1.8, [place] # (Auto) 0.5, Eos # (Auto) 0.2, Baso # (Auto) 0.0 03/23/21 06:53: Sodium 136, Potassium 4.3, Chloride 99, Carbon Dioxide 29, Anion Gap 12.3, BUN 9 D, Creatinine 0.70, Estimated Creat Clear 200, Estimated GFR 120, Est GFR ( Amer) 145, Glucose 220 H, Calcium 9.0, Total Bilirubin 0.8, AST 28 D, ALT 33 D, Alkaline Phosphatase 98, Total Protein 7.1, Albumin 4.0, Globulin 3.1, Albumin/Globulin Ratio 1.3, Amylase 143 H, Lipase 936 H I & O for Last 24 hours: Intake & Output 03/20/21 03/21/21 03/22/21 03/23/21 11:59 11:59 11:59 11:59 Intake Total 1000 / 1000 0 / 0 Output Total 850 / 850 1600 / 1600 Balance 150 / 150 -1600 / -1600 Weight 250 lb 14.4 oz 244 lb 11.2 oz Narrative: He appears in no distress. Lungs are clear. Heart is regular. Abdomen is soft and nondistended. Bowel sounds are present but diminished. Minimal midepigastric tenderness. Assessment and Plan (1) Pancreatitis Status: Acute Qualifiers: Chronicity: acute Pancreatitis type: unspecified pancreatitis type Acute pancreatitis complication: no infection or necrosis Qualified Code(s): K85.90 - Acute pancreatitis without necrosis or infection, unspecified Category: Medical Code(s): K85.90 - Acute pancreatitis without necrosis or infection, unspecified (2) Hypertension Status: Chronic Qualifiers: Hypertension type: primary hypertension Qualified Code(s): I10 - Essential (primary) hypertension Category: Medical Code(s): I10 - Essential (primary) hypertension (3) Type 2 diabetes mellitus Status: Chronic Qualifiers: Diabetes mellitus senior living insulin use: without senior living use Diabetes mellitus complication status: with other specified complication Qualified Code(s): E11.69 - Type 2 diabetes mellitus with other specified complication Category: Medical Code(s): E11.9 - Type 2 diabetes mellitus without complications (4) History of atrial fibrillation Status: Chronic Category: Medical Code(s): Z86.79 - Personal history of other diseases of the circulatory system (5) Hyperlipidemia Status: Chronic Category: Medical Code(s): E78.5 - Hyperlipidemia, unspecified - Assessment and plan all Dx Assessment and Plan for all problems:: Pancreatitis is improving with conservative treatment. Lipase is < 1000. Advance to clear liquids today.
--- NOTE | 2021-03-23 18:15 | PC.NURSE ---
PT HAS TOLERATED ADVANCING DIET. DENIES N/V/D. NO PAIN REPORTED TO STAFF, DOES NOT REQUIRE O2 SUPPORT.
[2021-03-23 21:08] LABS: POC Glucose,Bedside 176 (70-110)
[2021-03-24] VITALS (10 sets, daily range): BP systolic 126–155; BP diastolic 77–97; PULSE 64–90; RESP 17–19; TEMP 36.6–37.1; O2SAT 96–97; BMI 33.0
[2021-03-24 06:26] LABS: POC Glucose,Bedside 145 (70-110)
--- NOTE | 2021-03-24 06:29 | PC.NURSE ---
pt rested well most of the night, pt used home cpap machine all night, no complaints of pain through the night, VSS, tele NSR. IV restarted.
[2021-03-24 08:11] LABS: Amylase 44 U/L (30-110); Lipase 534 U/L (23-300)
--- NOTE | 2021-03-24 09:00 | P.PN_ITS ---
Internal Medicine - PN: Subj *Date: 03/24/21 *Time: 09:00 Interval history: Continues with steady improvement. Has not required pain medication in the last 24 hours. No nausea. He has tolerated the liquid diet. His bowels moved yesterday. Exam Vital signs and Labs for Last 24 Hours: Temp Pulse Resp BP Pulse Ox 98.7 F 82 18 148/97 H 96 03/24/21 07:57 03/24/21 07:57 03/24/21 07:57 03/24/21 07:57 03/24/21 07:57 Laboratory Results - last 24 hr 03/23/21 20:18: POC Glucose 176 H 03/24/21 06:00: POC Glucose 145 H 03/24/21 06:30: Amylase 44 D, Lipase 534 H I & O for Last 24 hours: Intake & Output 03/21/21 03/22/21 03/23/21 03/24/21 11:59 11:59 11:59 11:59 Intake Total 1000 / 1000 0 / 0 3400 / 3400 Output Total 850 / 850 1600 / 1600 Balance 150 / 150 -1600 / -1600 3400 / 3400 Weight 250 lb 14.4 oz 244 lb 11.2 oz 244 lb Narrative: He appears in no distress. Lungs are clear. Abdomen soft and nondistended with minimal epigastric tenderness Assessment and Plan (1) Pancreatitis Status: Acute Qualifiers: Chronicity: acute Pancreatitis type: unspecified pancreatitis type Acute pancreatitis complication: no infection or necrosis Qualified Code(s): K85.90 - Acute pancreatitis without necrosis or infection, unspecified Category: Medical Code(s): K85.90 - Acute pancreatitis without necrosis or infection, unspecified (2) Hypertension Status: Chronic Qualifiers: Hypertension type: primary hypertension Qualified Code(s): I10 - Essential (primary) hypertension Category: Medical Code(s): I10 - Essential (primary) hypertension (3) Type 2 diabetes mellitus Status: Chronic Qualifiers: Diabetes mellitus termite control service representative insulin use: without termite control service representative use Diabetes mellitus complication status: with other specified complication Qualified Code(s): E11.69 - Type 2 diabetes mellitus with other specified complication Category: Medical Code(s): E11.9 - Type 2 diabetes mellitus without complications (4) History of atrial fibrillation Status: Chronic Category: Medical Code(s): Z86.79 - Personal history of other diseases of the circulatory system (5) Hyperlipidemia Status: Chronic Category: Medical Code(s): E78.5 - Hyperlipidemia, unspecified - Assessment and plan all Dx Assessment and Plan for all problems:: Clinically improved. Pancreatic enzymes continue to improve. Will advance diet. If he tolerates his diet enzymes remain stable, he can likely discharge tomorrow.
[2021-03-24 16:33] LABS: POC Glucose,Bedside 208 (70-110)
[2021-03-24 16:33] LABS: POC Glucose,Bedside 167 (70-110)
[2021-03-24 16:33] LABS: POC Glucose,Bedside 204 (70-110)
--- NOTE | 2021-03-24 18:40 | PC.NURSE ---
NO ACUTE CHANGES THIS SHIFT. HE IS STILL AOX4, ABLE TO MAKE NEEDS KNOWN TO STAFF, HAS TOLERATED ADVANCED DIET WELL. DENIES N/V/D. DENIES ABD. AND I SOFT AND NON-TENDER ON PALPATION. TOLERATING RA WELL.
[2021-03-24 22:01] LABS: POC Glucose,Bedside 170 (70-110)
[2021-03-24 22:01] LABS: POC Glucose,Bedside 230 (70-110)
[2021-03-25] VITALS: PULSE 80
[2021-03-25 04:00] VITALS: BP 114/68; PULSE 70; PULSE 97; RESP 17; TEMP 36.6; O2SAT 96
[2021-03-25 04:34] VITALS: BMI 32.9
--- NOTE | 2021-03-25 05:49 | PC.NURSE ---
pt slept most of the night, no issues or concerns, iv restarted due to occlusion of iv in left hand, pt complains of tenderness and swelling still to left AC where initial IV was placed, no redness noted to sight, but pt did have tenderness, pt slept with home cpap machine well. no complaints of pain through the night, tolerated po food with no issues.
[2021-03-25 06:23] LABS: Amylase 52 U/L (30-110); Lipase 421 U/L (23-300)
[2021-03-25 07:02] LABS: POC Glucose,Bedside 251 (70-110)
[2021-03-25 07:40] VITALS: BP 148/92; PULSE 92; RESP 18; TEMP 36.5; O2SAT 96
[2021-03-25 08:00] VITALS: PULSE 88
--- NOTE | 2021-03-25 08:50 | HMH.ACPN2 ---
<Georgina Mahajan - Last Filed: 03/25/21 08:50> Internal Medicine - PN: Subj *Date: 03/25/21 *Time: 08:50 Interval history: Patient had a good day yesterday. Diet was advanced and he tolerated well without abdominal pain, nausea, or vomiting. His bowels have moved. He is voiding QS. He did sleep last night. He is ambulated in the room. This a.m. amylase is normal at 52 this with a lipase decreased to 421. Exam Vital signs and Labs for Last 24 Hours: Temp Pulse Resp BP Pulse Ox 97.7 F 92 H 18 148/92 H 96 03/25/21 07:40 03/25/21 07:40 03/25/21 07:40 03/25/21 07:40 03/25/21 07:40 Laboratory Results - last 24 hr 03/23/21 11:45: POC Glucose 167 H 03/23/21 15:42: POC Glucose 204 H 03/24/21 12:12: POC Glucose 208 H 03/24/21 16:45: POC Glucose 170 H 03/24/21 21:00: POC Glucose 230 H 03/25/21 05:12: Amylase 52 D, Lipase 421 H 03/25/21 06:08: POC Glucose 251 H I & O for Last 24 hours: Intake & Output 03/22/21 03/23/21 03/24/21 03/25/21 11:59 11:59 11:59 11:59 Intake Total 1000 / 1000 0 / 0 3400 / 3400 2015 Output Total 850 / 850 1600 / 1600 525 / 525 Balance 150 / 150 -1600 / -1600 3400 / 3400 1491 / 1491 Weight 250 lb 14.4 oz 244 lb 11.2 oz 244 lb 243 lb - Constitutional no acute distress - *Routine Respiratory Exam Present: CTA bilaterally (Anteriorly and posteriorly) - *Routine Cardiovascular Exam Present: RRR - *Routine Abdominal Exam Present: soft, normoactive bowel sounds. Absent: tenderness, distended - *Routine Extremities Exam Absent: edema, calf tenderness - *Routine Neurological Exam Present: alert, oriented X3 Assessment and Plan (1) Pancreatitis Status: Acute Qualifiers: Chronicity: acute Pancreatitis type: unspecified pancreatitis type Acute pancreatitis complication: no infection or necrosis Qualified Code(s): K85.90 - Acute pancreatitis without necrosis or infection, unspecified Category: Medical Code(s): K85.90 - Acute pancreatitis without necrosis or infection, unspecified (2) Hypertension Status: Chronic Qualifiers: Hypertension type: primary hypertension Qualified Code(s): I10 - Essential (primary) hypertension Category: Medical Code(s): I10 - Essential (primary) hypertension (3) Type 2 diabetes mellitus Status: Chronic Qualifiers: Diabetes mellitus retirement insulin use: without retirement use Diabetes mellitus complication status: with other specified complication Qualified Code(s): E11.69 - Type 2 diabetes mellitus with other specified complication Category: Medical Code(s): E11.9 - Type 2 diabetes mellitus without complications (4) History of atrial fibrillation Status: Chronic Category: Medical Code(s): Z86.79 - Personal history of other diseases of the circulatory system (5) Hyperlipidemia Status: Chronic Category: Medical Code(s): E78.5 - Hyperlipidemia, unspecified - Assessment and plan all Dx Assessment and Plan for all problems:: Patient will be discharged home with follow-up in the office of [facility] with Dr. Bazan <Mauro Bazan - Last Filed: 03/25/21 14:01> Internal Medicine - PN: Subj *Date: 03/25/21 *Time: 13:59 Exam Vital signs and Labs for Last 24 Hours: Temp Pulse Resp BP Pulse Ox 97.7 F 88 18 148/92 H 96 03/25/21 07:40 03/25/21 08:00 03/25/21 07:40 03/25/21 07:40 03/25/21 07:40 Laboratory Results - last 24 hr 03/23/21 11:45: POC Glucose 167 H 03/23/21 15:42: POC Glucose 204 H 03/24/21 12:12: POC Glucose 208 H 03/24/21 16:45: POC Glucose 170 H 03/24/21 21:00: POC Glucose 230 H 03/25/21 05:12: Amylase 52 D, Lipase 421 H 03/25/21 06:08: POC Glucose 251 H I & O for Last 24 hours: Intake & Output 03/23/21 03/24/21 03/25/21 03/26/21 11:59 11:59 11:59 11:59 Intake Total 0 / 0 3400 / 3400 2015 Output Total 1600 / 1600 525 / 525 Balance -1600 / -1600 3400 / 3400 1491 / 1491 Weight 244
--- NOTE | 2021-03-25 11:40 | PC.NURSE ---
Did educate pt on ssi, and use of an insulin syringe prior to d/c.
--- NOTE | 2021-04-01 23:42 | HMH.DCSUM ---
General - General Admission date:: 03/21/21 <Mauro Bazan - 05/18/21 22:22> 03/21/21 <Justine Higuera - 04/01/21 23:45> Discharge date: 03/25/21 <Justine Higuera - 04/01/21 23:45> HPI HPI: Mr. Segundo is a 50-year-old male with a history of hypertension, gout, type 2 diabetes, A. fib, and hyperlipidemia. He states a few months ago he had some abdominal pain, but tests were negative for pancreatitis. At the beginning of this week he started having some diarrhea. He then started having worsening epigastric and right upper quadrant abdominal pain that radiated into his back. He finally came to the emergency room for evaluation and was found to have an elevated amylase and lipase and a pancreatitis on CT scan. He was admitted and kept n.p.o. He denies any history of alcohol use and his triglycerides have been normal. He has never had any problems with his gallbladder. This a.m. he continues with some abdominal discomfort, but it has improved slightly. He still has some radiation to his back. He has some mild nausea but no vomiting. His diarrhea has resolved. His abdominal pelvic CT showed a pancreatitis, fatty liver, and splenomegaly. <Justine Higuera - 04/01/21 23:45> Hospital Course Hospital Course: The etiology of the patient's pancreatitis is not evident but was likely due to Rybelsus which was started a few months prior to his episode. He was continued on GI rest and his IV fluids were increased. He was continued on pain management and sliding scale for blood sugar control. Sips and chips were ordered. His abdominal pain did begin improving and his lipase was decreasing. His diet was advanced. He tolerated his diet and required no pain medication. His diet was advanced again and he tolerated this without any abdominal pain, nausea, or vomiting. He was up ambulating in his room and his pancreatic enzymes were much improved. By 03/25/2021, he was stable to be discharged home and will follow up with Dr. Bazan. He will discontinue the Rybelsus. <Justine Higuera - 04/01/21 23:45> Objective Vital signs: Temp Pulse Resp BP Pulse Ox 97.7 F 88 18 148/92 H 96 03/25/21 07:40 03/25/21 08:00 03/25/21 07:40 03/25/21 07:40 03/25/21 07:40 <Mauro Bazan - 05/18/21 22:22> Temp Pulse Resp BP Pulse Ox 97.7 F 88 18 148/92 H 96 03/25/21 07:40 03/25/21 08:00 03/25/21 07:40 03/25/21 07:40 03/25/21 07:40 <Justine Higuera - 04/01/21 23:45> Narrative: - Constitutional no acute distress - *Routine Respiratory Exam Present: CTA bilaterally (Anteriorly and posteriorly) - *Routine Cardiovascular Exam Present: RRR - *Routine Abdominal Exam Present: soft, normoactive bowel sounds. Absent: tenderness, distended - *Routine Extremities Exam Absent: edema, calf tenderness - *Routine Neurological Exam Present: alert, oriented X3 <Justine Higuera - 04/01/21 23:45> DS: Diagnosis - Discharge Diagnosis (1) Pancreatitis Status: Acute (2) Hypertension Status: Chronic (3) Type 2 diabetes mellitus Status: Chronic (4) History of atrial fibrillation Status: Chronic (5) Hyperlipidemia Status: Chronic <Justine Higuera - 04/01/21 23:42> (1) Pancreatitis Status: Acute (2) Hypertension Status: Chronic (3) Type 2 diabetes mellitus Status: Chronic (4) History of atrial fibrillation Status: Chronic (5) Hyperlipidemia Status: Chronic <Mauro Bazan - 05/18/21 22:22> Discharge Plan - Patient Discharge Instructions ACTIVITY: Continue current activity <Justine Higuera - 04/01/21 23:45> DIET: continue same diet <Justine Higuera - 04/01/21 23:45> Patient Instructions: Hypertension (Alternative Therapy), Type 2 Diabetes, DI for Pancreatitis <Mauro Bazan - 05/18/21 22:22> Forms: <Mauro Bazan - 05/18/21 22:22> - Follow up Plan Follow up with: Mauro Bazan MD [
== END 2021-03-25 10:45 | disposition home or self-care (01) | DRG 440 ==
LOC: ER 21:05 → 2ND 21:24
PROVIDERS: Emergency Medicine; Admitting Provider Family Medicine; Emergency Provider Emergency Medicine; PCP Family Medicine; Visit Provider Family Medicine
DX: K85.90 Acute pancreatitis without necrosis or infection, unspecified (principal); I25.10 Atherosclerotic heart disease of native coronary artery without angina pectoris; I10 Essential (primary) hypertension; E11.9 Type 2 diabetes mellitus without complications; E78.5 Hyperlipidemia, unspecified; I48.91 Unspecified atrial fibrillation; Z20.822 Contact with and (suspected) exposure to COVID-19; Z79.4 Long term (current) use of insulin
CPT/HCPCS: 36415; 74177; 80048; 80053; 80061; 81001; 82150; 82962; 83690; 83735; 84484; 85025; 93005; 96365; 96375; 96376; 99284; C9803; J2405; Q9967; U0003; U0005

== ENCOUNTER → 2021-08-01 16:40 | Outpatient (CLI) | payer OTHER, SELFPAY ==
--- NOTE | 2021-08-01 16:44 | MR_ITS ---
PROCEDURE INFORMATION: Exam: MR Lumbar Spine Without Contrast Exam date and time: 08/01/2021 5:13 PM Age: 51 years old Clinical indication: Low back pain; Additional info: Acute lt sided lbp w/ lt sided sciatica. Lbp worse on left side. Pain going down lt leg. No injury or trauma. PT had a hard time staying still. Sent over best images. TECHNIQUE: Imaging protocol: Multiplanar magnetic resonance images of the lumbar spine without intravenous contrast. COMPARISON: CT ABDOMEN PELVIS W CON 03/21/2021 7:49 PM FINDINGS: Vertebrae: No acute compression fracture is seen. Bone marrow signal is within normal limits. Spinal cord: The conus medullaris terminates at the L1 level. There is no evidence of arachnoiditis or cauda equina compression. T12-L1: There is a tiny shallow right paracentral disc osteophyte complex. There is no significant spinal canal or neural foraminal stenosis. L1-L2: No significant disc disease. No significant spinal stenosis or neural foraminal narrowing. L2-L3: No significant disc disease. No significant spinal stenosis or neural foraminal narrowing. L3-L4: There is mild diffuse circumferential disc bulging with a superimposed left subarticular, foraminal, and extraforaminal disc protrusion. Mild facet arthropathy is also present. This is causing mild spinal canal stenosis, severe narrowing of the left subarticular recess, moderate left foraminal stenosis, and mild right foraminal stenosis. The left extraforaminal disc protrusion abuts the left L3 nerve. L4-L5: There is mild diffuse circumferential disc bulging with a central annular fissure. There is no significant spinal canal or neural foraminal stenosis. L5-S1: No significant disc disease. No significant spinal stenosis or neural foraminal narrowing. Soft tissues: Unremarkable. IMPRESSION: Left subarticular, foraminal, and extraforaminal disc protrusion at L3-L4. See discussion above.
--- NOTE | 2021-08-01 16:51 | XR_ITS ---
PROCEDURE INFORMATION: Exam: XR Orbits, MR Screening Exam date and time: 08/01/2021 4:54 PM Age: 51 years old Clinical indication: Screening exam; Screening eyes prior to mri. HX metal in both eyes; Additional info: R/O foreign body for mri TECHNIQUE: Imaging protocol: XR of the orbits. Exam was performed for MR screening. Views: 1 or 2 views COMPARISON: No relevant prior studies available. FINDINGS: Sinuses: Well aerated. No opacification. Bones/joints: No fracture. Soft tissues: Unremarkable. Radiopaque foreign body: None. Aneurysm clip: None. Implantable device: None. Notes: No visible contraindication to MRI on this exam. IMPRESSION: No evidence of foreign body.
== END ==
PROVIDERS: PCP Family Medicine; Visit Provider Family Medicine
DX: M54.42 Lumbago with sciatica, left side (principal); M62.81 Muscle weakness (generalized)
CPT/HCPCS: 70200; 72148; 76376

== ENCOUNTER 2021-11-28 08:00 | Outpatient (RCR) | payer OTHER, SELFPAY ==
--- NOTE | 2021-08-19 08:41 | HMH.PTOPEV ---
PT Outpatient Evaluation Rehab PT Outpatient Evaluation Start: 08/19/21 07:57 Freq: Status: Active Protocol: Document 08/19/21 08:21 ELHAM (Rec: 08/19/21 08:40 ELHAM [id number]) Electronically Signed By Shashi Alcantara, PT 08/19/21 08:21 Outpatient Therapy Subjective History Subjective History Pt reports acute onset left sided LBP beginning ~ 5weeks ago, 'I went bowling and left with LBP'. Pt reports pain progressed, left sided LBP, then L hip pain to knee, with N&T. Pt reports inability to walk for 2 weeks, 'better now with the meds'. Recent lumbar MRI has revealed L3-4 disc protrusion to the left. Chief Complaint Pain,Stiff,Paresthesia, Weakness Symptom Type Ache,Sharp,Dull,Stabbing, Burning,Numbness,Tingling Symptoms Relieved By Rest/Positioning,Prescription Meds Symptoms Aggravated By Standing,Physical Activity, Walking Prior Functional Limitations Housework,Sleeping,Standing, Walking Current Functional Limitations Lifting,Housework,Driving, Sleeping,Standing,Walking, Bending/Stooping Symptom Description Constant but Variable Level of pain today (0-10) 4 Pain scale - at its best (0-10) 3 Pain scale - at its worst (0-10) 10 Lumbopelvic Eval Posture Thoracic Spine Posture Standing Position Flattened Lumbar Spine Posture Standing Position Flattened Assistive device Assistive Devices Straight Cane Gait Observation General Gait Pattern Observation Antalgic Gait Palapation tenderness left lumbar spinal tenderness Yes: 3/4 paraspinal tenderness Yes: 3/4 buttock tenderness Yes: 3/4 Lumbar/Sacral Palpation Findings Tenderness,Trigger Point, Muscle Guarding Accessory Movement L-spine Vertebrae Accessory Movements Left P/A [place] that Elicit Symptoms L2 left L3 left L4 left L5 left Range of Motion Lumbar Spine Active Flexion Range of 0-25 Motion (degrees) Lumbar Spine Active Extension Range of 0-10 Motion (degrees) Left Lumbar Spine Lateral Flexion Active 0-20 Range of Motion (degrees) Right Lumbar Spine Lateral Flexion 0-15 Active Range of Motion (degrees) Lumb
--- NOTE | 2021-09-24 08:22 | HMH.RHREAS ---
Rehab Reassessment Rehab OP Re-assessment Start: 09/24/21 08:03 Freq: Status: Active Protocol: Document 09/24/21 08:03 ELHAM (Rec: 09/24/21 08:22 ELHAM [id number]) Electronically Signed By Shashi Alcantara, PT 09/24/21 08:03 Rehab Re-assessment Subjective Subjective Pt reports 2-10 LBP and Left LE pain on VAS, and feels 'a whole lot better' since I eval Objective Objective Notes AROM: LUMBAR FLX 0-39, ext 0- 21, R SB 0-31, L SB 0-27 MMT: LEFT HIP FLX 3+-4/5, L KNEE EXT 4/5, L KNEE FLX 4-4+/ 5, L DF 5/5 TTP: LEFT LUMBAR PARA 2-3/4, LEFT PIRI 2-3/4 Assessment Progress Assessment Progressing as Expected Assessment Notes IMPROVED STRENGTH, TTP, AND AROM Patient goals met STG'S 09/27 LTG'S 05/30 Goals Not Met STG'S 07/28, LTG'S 11/27 Plan Plan Pt to continue w/skilled P.T. to make further improvements in lumbar AROM, strength, and TTP to allow for optimal function Frequency of Therapy 2-3x/wk Duration of therapy 3-4wks Time and Billing Re-Eval Time 12 Re-Eval Billing Units 1 PHYSICIAN CERTIFICATION: I certify the specified therapy services for Eladio Segundo are required, authorized, and reviewed every 30 days.
--- NOTE | 2021-10-24 09:26 | HMH.RHREAS ---
Rehab Reassessment Rehab OP Re-assessment Start: 09/24/21 08:03 Freq: Status: Active Protocol: Document 10/24/21 09:15 ELHAM (Rec: 10/24/21 09:26 ELHAM [id number]) Electronically Signed By Shashi Alcantara, PT 10/24/21 09:15 Rehab Re-assessment Subjective Subjective Pt reports 3/10 LBP and Left LE pain on VAS, and feels 50% better overall, 'I'm stronger in that leg, can be up on it longer.' Objective Objective Notes AROM: LUMBAR FLX 0-62, ext 0- 28, R SB 0-31, L SB 0-33 MMT: LEFT HIP FLX 4+/5, L KNEE EXT 4+/5, L KNEE FLX 4+/5, L DF 5/5 TTP: LEFT LUMBAR PARA 0-1/4, LEFT PIRI 0-1/4 Assessment Progress Assessment Progressing as Expected Assessment Notes IMPROVED ROM, STRENGTH, TTP Patient goals met STG'S 01/27 LTG'S 11/27 Goals Not Met LTG'S 05/30 Plan Plan Pt to continue w/skilled P.T. to make further improvements in lumbar AROM, strength, and TTP to allow for optimal function Frequency of Therapy 2-3X/WK Duration of therapy 3-4WKS Time and Billing Re-Eval Time 12 Re-Eval Billing Units 1 PHYSICIAN CERTIFICATION: I certify the specified therapy services for Eladio Segundo are required, authorized, and reviewed every 30 days.
== END 2021-11-28 08:05 | disposition home or self-care (01) ==
LOC: PT 08:00
PROVIDERS: PCP Family Medicine; Visit Provider Family Medicine
DX: M54.42 Lumbago with sciatica, left side (principal); M62.81 Muscle weakness (generalized); M51.26 Other intervertebral disc displacement, lumbar region; M48.061 Spinal stenosis, lumbar region without neurogenic claudication
CPT/HCPCS: 97010; 97012; 97014; 97110; 97112; 97163; 97164; G0283

== ENCOUNTER 2024-05-15 11:40 | Emergency (ER) | payer BC, SELFPAY ==
[2024-05-15 12:34] VITALS: BP 121/76; PULSE 68; RESP 18; TEMP 36.8; O2SAT 97; BMI 35.5
--- NOTE | 2024-05-15 13:27 | EXP.UTC ---
Discharge Plan Disposition Patient Disposition: Home, Self-Care Condition: Good Prescriptions Prescriptions: New clindamycin HCl 300 mg capsule 300 mg PO TID 10 Days Qty: 30 0RF No Action glimepiride 2 MG tablet 2 mg PO DAILY lisinopril 20 MG tablet 20 mg PO DAILY metformin 1,000 MG tablet 1,000 mg PO BID ezetimibe 10 MG tablet 10 mg PO DAILY insulin lispro 100 UNIT/ML solution 0 unit SQ ACHS Qty: 10 1RF Protocol: Insulin Corrective Low-Dose Regimen Condition: Fingerstick Blood Glucose Dose/Route: Insulin Units Condition: 151-200 mg/dl Dose/Route: 2 unit/SQ Condition: 201-250 mg/dl Dose/Route: 4 units/SQ Condition: 251-300 mg/dl Dose/Route: 6 units/SQ Condition: 301-350 mg/dl Dose/Route: 8 units/SQ Condition: 351-400 mg/dl Dose/Route: 10 units/SQ Condition: 401-450 mg/dl Dose/Route: 12 units/SQ Condition: > 450 mg/dl Dose/Route: CALL MD Protocol Text: Low Intensity Sliding Scale Insulin metoprolol succinate 25 MG tablet extended release 24 hr 25 mg PO DAILY allopurinol 300 MG tablet 300 mg PO DAILY trazodone 50 MG tablet 50 - 100 mg PO HSP PRN (Reason: Sleep) aspirin 81 MG tablet,delayed release (DR/EC) 81 mg PO DAILY fluticasone propionate 9.9 ML spray,suspension 1 spray NOSTRIL-B DAILY cholecalciferol (vitamin D3) 50 MCG tablet 50 mcg PO DAILY Referrals Follow up/Referrals: Mauro Bazan MD [Primary Care Provider] - See instructions Activity Restrictions/Add. Instructions Additional Instructions/Restrictions: Take medication as prescribed. Follow up with dentist next week. If symptoms worsen, return to clinic/ER. Take Tylenol/Ibuprofen as needed for pain. Clinical Impressions Clinical Impression: Dental abscess Instructions Patient Instructions: DI for Dental Pain, Tooth Abscess Print Language Print Language: Japanese Discharge ED Provider: Cara Gamino [facility] HPI General Stated complaint: swollen right side of neck Mode of Arrival: Ambulatory Source of Information: Patient Time Seen by Provider: 05/15/24 13:26 Description of Symptoms (Recalled from Triage Doc. by RN): SWELLING right SIDE OF NECK/JAW HEENT Symptoms (Recalled from RN notes): Yes Resp Symptoms (Recalled from RN notes): No Skin Symptoms (Recalled from RN notes): Yes MS Symptoms (Recalled from RN notes): No Functional Status (Recalled from RN notes): WNL History of Present Illness Provider Complaint: Pt reports that he broke a tooth about 3 months ago and has problems with it every so often since that time. He states that yesterday his gum became very tender and he noticed swelling in the right side of jaw/neck. Related Data Home Medications ?Medication ?Instructions ?Recorded ?Confirmed metoprolol succinate 25 mg 25 mg PO DAILY High blood pressure 03/19/20 05/15/24 tablet,extended release 24 hr allopurinol 300 mg tablet 300 mg PO DAILY Gout 08/16/20 03/21/21 aspirin 81 mg tablet,delayed 81 mg PO DAILY Heart health 08/16/20 03/22/21 release cholecalciferol (vitamin D3) 50 50 mcg PO DAILY Supplement 08/16/20 03/22/21 mcg (2,000 unit) tablet fluticasone propionate 50 1 spray NOSTRIL-B DAILY Allergy 08/16/20 03/22/21 mcg/actuation nasal symptoms spray,suspension trazodone 50 mg tablet 50 - 100 mg PO HSP PRN Sleep 08/16/20 05/15/24 ezetimibe 10 mg tablet 10 mg PO DAILY Diabetes 03/22/21 03/22/21 glimepiride 2 mg tablet 2 mg PO DAILY Diabetes 03/22/21 03/22/21 lisinopril 20 mg tablet 20 mg PO DAILY High blood pressure 03/22/21 05/15/24 metformin 1,000 mg tablet 1,000 mg PO BID Diabetes 03/22/21 05/15/24 Previous Rx's ?Medication ?Instructions ?Recorded insulin lispro 100 unit/mL 0 unit SQ ACHS #10 mL 03/25/21 subcutaneous solution clindamycin HCl 300 mg capsule 300 mg PO TID 10 days #30 caps 05/15/24 Allergies Allergy/AdvReac Type Severity Reaction Status Date / Time Sulfa (Sulfonamide Allergy Intermediate I-HIVES Verified 03/19/20 09:33 Antibiotics) (SULFA (SULFONAMIDE ANTIBIOTICS)) Penicillins (PENICILLINS) Allergy Unknown Verified 03/19/20 09:33 Worker's Comp Is this a Worker's Comp case?: No [facility] Disclaimer: The information contained in this section may have been updated after the patient was seen, as this information can be updated by other users. Social History Smoking Status: Never smoker alcohol intake: never substance use type: denies use and other current occupational status: employed Travel in the last 8 weeks: Inside the [place] household members: spouse housing: house current occupation: vp production current occupational exposures/hazards: No caffeine: Yes Have you lived/traveled outside [place] in past 30 days?: No Contact w/someone who lives/traveled outside [place] past 30 days?: No Exposure to someone with infectious disease in past 14 days?: No Do you have a fever (greater than 100.4 F or 38 C)?: No Have you tested positive for COVID-19: No Exposed to someone with COVID-19 in past 14 days?: No Do you have a sore throat?: No Do you have a cough?: No Do you have any weakness?: No Do you have any diarrhea?: No Are you experiencing any unusual bleeding?: No Do you have any muscle aches/pain?: No Do you have any abdominal pain?: No Are you experiencing loss of taste or smell?: No ROS Obtained: Yes All systems reviewed & no additional complaints except as documented Constitutional Constitutional: Reports system reviewed and no additional complaints, except as documented Eyes Eyes: Reports system reviewed and no additional complaints, except as documented ENT Ears, Nose, Mouth, and Throat: Reports system reviewed and no additional complaints, except as documented, Reports dental pain and Reports neck pain Cardiovascular Cardiovascular: Reports system reviewed and no additional complaints, except as documented Respiratory Respiratory: Reports system reviewed and no additional complaints, except as documented Gastrointestinal Gastrointestingal: Reports system reviewed and no additional complaints, except as documented Genitourinary Male Genitourinary: Reports system reviewed and no additional complaints, except as documented Musculoskeletal Musculoskeletal: Reports system reviewed and no additional complaints, except as documented and Reports neck pain Integumentary/Breasts Skin/Breast: Reports system reviewed and no additional complaints, except as documented Neurologic Neurologic: Reports system reviewed and no additional complaints, except as documented Endocrine Endocrine: Reports system reviewed and no additional complaints, except as documented Hematologic/Lymphatic Henatologic/Lymphatic: Reports system reviewed and no additional complaints, except as documented Allergic/Immunologic Allergic/Immunologic: Reports system reviewed and no additional complaints, except as documented Physical Exam General General appearance: alert and in no apparent distress Head Head exam: atraumatic and normocephalic Eye Eye exam: Present normal appearance Expanded ENT Exam External ear exam: Present normal external inspection Nasal speculum exam: Bilateral: normal Mouth exam: Present normal external inspection Teeth exam: Present fractured tooth # (31), dental tenderness # (31) and gingival swelling Throat exam: Present normal inspection Neck Neck exam: Present lymphadenopathy (right side) Chest Chest inspection: Present normal inspection and symmetric chest wall rise Respiratory Respiratory exam: Present normal lung sounds bilaterally Cardiovascular Cardiovascular exam: Present regular rate and normal rhythm Abdominal Exam Abdominal exam: Present soft and normal bowel sounds exam: Present normal inspection Extremities Exam Extremities exam: Present normal inspection Back Exam Back exam: Present normal inspection Neurological Exam Neurological exam: Present alert and oriented X3 Psychiatric Psychiatric exam: Present normal affect and normal mood Skin Skin exam: Present warm, dry and intact Lymphatic Lymphatic Findings: no adenopathy Medical Decision Making Medical Records Screening: Per USPSTF and CDC recommendations, given the prevalence of disease in our region, it is our hospital?s policy to screen for HIV and viral Hepatitis for all patients aged 18 and over and those with ongoing risk factors. Luigi Inquiry Pt receiving controlled substance: No Luigi was queried for this patient: No Vital Signs: 05/15/24 12:34 Temperature 98.2 F Temperature Source Oral Pulse Rate [Left Radial] 68 Respiratory Rate 18 Blood Pressure [Left Arm] 121/76 Blood Pressure Mean [Left Arm] 91 02 Sat by Pulse Oximetry 97
[2024-05-15 13:41] VITALS: BP 121/76; PULSE 68; RESP 18; TEMP 36.8
== END 2024-05-15 13:44 | disposition home or self-care (01) ==
PROVIDERS: Emergency Provider Nurse Practitioner Family; PCP Family Medicine
DX: K04.7 Periapical abscess without sinus (principal)
CPT/HCPCS: 99213; G0381